=== PATIENT | male | born 1955 | race Two or more races ===

== ENCOUNTER 2020-03-26 04:07 | Emergency (ER) | payer SELFPAY ==
[~2020-03-26] VITALS: Ht 193 cm; Wt 87.0 kg
[2020-03-26] MEDS ORDERED: PREDNISONE 20MG TABLET PO ONE (06:45)
[2020-03-26] MEDS ORDERED: AZITHROMYCIN 500 MG TABLET PO ONE (06:45)
[2020-03-26 07:35] VITALS: BP 134/60
== END 2020-03-26 07:37 | disposition home or self-care (01) ==
LOC: ER 04:07
DX: U07.1 COVID-19 (principal); J12.89 Other viral pneumonia; R03.0 Elevated blood-pressure reading, without diagnosis of hypertension; J45.909 Unspecified asthma, uncomplicated
CPT/HCPCS: 71045; 87635; 93005; 99285; J7512

== ENCOUNTER 2021-10-11 16:20 | Emergency (ER) | payer SELFPAY ==
[~2021-10-11] VITALS: Ht 190.5 cm; Wt 103.0 kg
[2021-10-11 16:47] VITALS: BP 145/122
[2021-10-11] MEDS ORDERED: FLUORESCEIN SODIUM 1MG/STRIP BOTHEYE ONE (17:30)
[2021-10-11] MEDS ORDERED: TETRACAINE 0.5% OPHTH DROPS 4ML BOTHEYE ONE (17:30)
[2021-10-11] MEDS ORDERED: NAPHADR EACHEYE (18:09)
== END 2021-10-11 18:39 | disposition home or self-care (01) ==
LOC: ER 16:20
DX: H10.13 Acute atopic conjunctivitis, bilateral (principal); J45.909 Unspecified asthma, uncomplicated; Z88.0 Allergy status to penicillin
CPT/HCPCS: 99283